=== PATIENT | female | born 1990 | race African-American/Black ===

== ENCOUNTER 2017-03-12 18:10 | Emergency (ER) | payer SELFPAY ==
[2017-03-12 18:18] VITALS: BP 132/62; BMI 21.7
[2017-03-12 18:54] LABS: BILIRUBIN,URINE NEGATIVE (NEGATIVE); BLOOD/HEMOGLOBIN,URINE NEGATIVE (NEGATIVE); GLUCOSE, URINE NEGATIVE (NEGATIVE); KETONES,URINE NEGATIVE (NEGATIVE); LEUKOCYTE ESTERASE ,URINE 2+ (NEGATIVE); NITRITES,URINE NEGATIVE (NEGATIVE); PROTEIN,URINE 1+ (NEGATIVE); UROBILINOGEN,URINE NORMAL (NORMAL)
[2017-03-12 19:30] LABS: APPEARANCE,URINE HAZY (CLEAR); BACTERIA,URINE 1+ /HPF (NEGATIVE); COLOR,URINE YELLOW (YELLOW); SQUAMOUS EPITHELIAL CELL,UR FEW /HPF (NEGATIVE)
--- NOTE | 2017-03-12 19:37 | DR.GENAD ---
HPI - PCP Primary Care Physician: nfd - Complaint/Symptoms Chief Complaint Doctors Comments: Patient admits to walking a great deal yesterday and today. Chief Complaint:: pt states" i was [place] [place] and my stomach started hurting I'm from [place] her visiting. I'm also 10 weeks " pt denies any bleeding or discharge. 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 Past Surgical History Comment: DNC - Family History History of Family Medical Conditions: No - infectious screening In the last 2 months have you had wt loss of >10#?: NO Have you had fever, night sweats or hemotysis?: No Have you traveled outside the country in the last 6 months?: No Isolation: Standard ROS - Review of Systems Eyes: No Symptoms Reported ENTM: No Symptoms Reported Respiratoy: No Symptoms Reported Cardiovascular: No Symptoms Reported Gastrointestinal/Abdominal: No Symptoms Reported Genitourinary: No Symptoms Reported Neurological: No Symptoms Reported Musculoskeletal: No Symptoms Reported Integumentary: No Symptoms Reported Hematologic/Lymphatic: No Symptoms Reported Endocrine: No Symptoms Reported Psychiatric: No Symptoms Reported All Other Systems: Reviewed and Negative PE - Vital Signs Vitals: Temperature 98.5 F Pulse Rate 89 Respiratory Rate 18 Blood Pressure 132/62 O2 Sat by Pulse Oximetry 100 - General Limitations: No Limitations General Appearance: Alert, In No Apparent Distress - Head Head Exam: Normal Inspection, Atraumatic - Eyes Eye exam: Normal Appearance, PERRL, EOMI - ENT ENT Exam: Normal Exam External Ear Exam: Normal External Inspection TM/Canal Exam: Bilateral Normal Nose Exam: Normal Nose Exam Mouth Exam: Normal Inspection Throat Exam: Normal Inspection - Neck Neck Exam: Normal Inspection - Chest Chest Inspection: Normal Inspection - Respiratory Respiratory Exam: Normal Lung Sounds Bilat Respiratory Exam: Bilateral Clear to Auscultation - Cardiovascular Cardiovascular Exam: Regular Rate, Normal Rhythm - Abdominal Exam Abdominal Exam: Normal Inspection, Normal Bowel Sounds, Soft Abdominal Tenderness: Suprapubic - Extremities Extremities Exam: Normal Inspection, Full ROM - Back Back Exam: Normal Inspection, Full ROM - Neurologic Neurological Exam: Alert, Oriented X3, CN II-XII Intact ROR - Labs Reviewed Laboratory Results Reviewed?: Yes (ua: negative) Laboratory: Specimen Type Clean catch urine 03/12/17 18:48 Urine Color Yellow (YELLOW) 03/12/17 18:48 Urine Appearance Hazy (CLEAR) 03/12/17 18:48 Urine pH 6.0 (5.0 - 8.0) 03/12/17 18:48 Ur Specific [place] 1.015 (1.000-1.030) 03/12/17 18:48 Urine Protein 1+ (NEGATIVE) 03/12/17 18:48 Urine Glucose (UA) Negative (NEGATIVE) 03/12/17 18:48 Urine Ketones Negative (NEGATIVE) 03/12/17 18:48 Urine Occult Blood Negative (NEGATIVE) 03/12/17 18:48 Urine Nitrite Negative (NEGATIVE) 03/12/17 18:48 Urine Bilirubin Negative (NEGATIVE) 03/12/17 18:48 Urine Urobilinogen Normal (NORMAL) 03/12/17 18:48 Ur Leukocyte Esterase 2+ (NEGATIVE) 03/12/17 18:48 Urine RBC 3-5 /HPF (NEGATIVE) 03/12/17 18:48 Urine WBC 5-6 /HPF (NEGATIVE) 03/12/17 18:48 Ur Squamous Epith Cells Few /HPF (NEGATIVE) 03/12/17 18:48 Urine Bacteria 1+ /HPF (NEGATIVE) 03/12/17 18:48 Ur Culture Indicated? No/not indicated 03/12/17 18:48 - Diagnosis Discharge Problem: Qualifiers: Weeks of gestation: 10 weeks Qualified Code(s): Z3A.10 - 10 weeks gestation of - Discharge Plan Condition: Stable - Follow ups/Referrals Follow ups/Referrals: NFD,None [Primary Care Provider] - 3 days - Instructions
== END 2017-03-12 20:24 | disposition home or self-care (01) ==
LOC: ER 18:30
DX: R10.84 Generalized abdominal pain (principal); Z3A.10 10 weeks gestation of pregnancy
CPT/HCPCS: 36415; 81001; 84702; 99282; 99284

== ENCOUNTER 2017-04-03 09:23 | Emergency (ER) | payer MEDICAID ==
[2017-04-03 09:30] VITALS: BP 119/56; BMI 21.7
--- NOTE | 2017-04-03 10:15 | DR.GENAD ---
HPI - PCP Primary Care Physician: NLD - Complaint/Symptoms Chief Complaint Doctors Comments: Patient is hear julia[place] maternal grandmother told her to come. Patient fell one week ago onto the ground while walking and hurt her left thigh. She has been trying to get her medicaid [place] to another state and has not been able to do. It has been more than two weeks since tried to see a physician in [place] but her medicaine card has not been transferred. Patient states that she is 17 weeks she is a single , LMP 01/03/17. Chief Complaint:: PT C/O FELL ONTO HER LT SIDE LAST THURSDAY AND SHE IS WANTING TO CHECK ON HER BABY. PT IS NOTED TO BE 11 WKS . - Source History Provided: Patient - Mode of Arrival Mode of Arrival: Ambulatory - Timing Onset of Chief Complaint: 03/27/17 PMH - PMH Past Medical History: No Past Medical History: Anemia Past Surgical History: Yes Surgical History: MACHINE BUFFER Surgery Past Surgical History Comment: DNC - Family History History of Family Medical Conditions: No - Social History Does any household member use tobacco: No Alcohol Use: None Do you use any recreational Drugs:: No Lives With: Family Lives Where: Home - infectious screening In the last 2 months have you had wt loss of >10#?: NO Have you had fever, night sweats or hemotysis?: No Have you traveled outside the country in the last 6 months?: No Isolation: Standard ROS - Review of Systems Eyes: No Symptoms Reported ENTM: No Symptoms Reported Respiratoy: No Symptoms Reported Cardiovascular: No Symptoms Reported Gastrointestinal/Abdominal: No Symptoms Reported Genitourinary: No Symptoms Reported Neurological: No Symptoms Reported Musculoskeletal: No Symptoms Reported Integumentary: No Symptoms Reported Hematologic/Lymphatic: No Symptoms Reported Endocrine: No Symptoms Reported Psychiatric: No Symptoms Reported All Other Systems: Reviewed and Negative PE - Vital Signs Vitals: Temperature 98.4 F Pulse Rate 93 Respiratory Rate 20 Blood Pressure 119/56 O2 Sat by Pulse Oximetry 100 - General Limitations: No Limitations General Appearance: Alert - Head Head Exam: Normal Inspection, Atraumatic - Eyes Eye exam: Normal Appearance, PERRL - ENT ENT Exam: Normal Exam, Normal Oropharynx External Ear Exam: Normal External Inspection TM/Canal Exam: Bilateral Normal Nose Exam: Normal Nose Exam Mouth Exam: Normal Inspection Throat Exam: Normal Inspection - Neck Neck Exam: Normal Inspection, Full ROM - Chest Chest Inspection: Normal Inspection, Symmetric Chest Wall Rise - Respiratory Respiratory Exam: Normal Lung Sounds Bilat Respiratory Exam: Bilateral Clear to Auscultation - Cardiovascular Cardiovascular Exam: Regular Rate, Normal Rhythm - Abdominal Exam Abdominal Exam: Normal Inspection Abdominal Tenderness: negative: RUQ, RLQ, LUQ, LLQ, Epigastrium, Suprapubic, Diffuse, Mild, Moderate, Severe, Other - Extremities Extremities Exam: Normal Inspection, Full ROM - Back Back Exam: Normal Inspection, Full ROM - Neurologic Neurological Exam: Alert, Oriented X3, CN II-XII Intact - Psychiatric Psychiatric Exam: Normal Affect - Skin Skin Exam: Warm, Dry, Intact - Diagnosis Discharge Problem: Qualifiers: Weeks of gestation: 13 weeks Qualified Code(s): Z3A.13 - 13 weeks gestation of - Discharge Plan Condition: Stable - Follow ups/Referrals Follow ups/Referrals: NFD,None [Primary Care Provider] - 3 days - Instructions
== END 2017-04-03 10:34 | disposition home or self-care (01) ==
LOC: ER 09:34
DX: M79.605 Pain in left leg (principal); Z3A.13 13 weeks gestation of pregnancy; W19.XXXA Unspecified fall, initial encounter; Y92.9 Unspecified place or not applicable
CPT/HCPCS: 99281; 99282